=== PATIENT | male | born 1945 | race Caucasian/White ===

== ENCOUNTER 2022-03-09 08:37 | Inpatient (IN) | payer MEDICARE ==
[2022-03-09] MEDS ORDERED: cefTRIAXone\\ROCEPHIN 1 GM VIAL ONE (09:21)
[2022-03-09] MEDS ORDERED: Pantoprazole 40 MG VIAL ONE (09:22)
[2022-03-09 09:37] LABS: #Monocytes 0.2 10x3/uL (0.0-1.1); #Neutrophils 1.4 10x3/uL (1.5-8.4); %Basophils 0.3 % (0.0-2.0); %Eosinophils 0.7 % (0.0-6.0); %Lymphocytes 42.5 % (18.0-47.0); %Neutrophils 48.2 % (40.0-75.0); Hemoglobin 11.2 g/dL (13.5-17.5); Mean Corpuscular HGB CONC 31.8 g/dL (32.0-36.0); Mean Corpuscular Volume 94.4 fl (81.2-95.1); Mean Platelet Volume 9.3 fl (7.4-10.4); Platelet Count 162 10x3/uL (150-450); RBC Distribution Width 14.6 % (11.5-14.5); Red Blood Cell (RBC) Count 3.73 10x6/uL (4.32-5.72); White Blood Cell (WBC) Count 2.9 10x3/uL (3.5-10.5)
[2022-03-09 09:57] LABS: INR-International Normal Ratio 1.1; PTT 31.6 sec (22.0-33.0); Prothrombin Time 11.6 sec (9.5-12.1)
[2022-03-09 09:58] LABS: ALT (SGPT) 19 U/L (8-55); AST (SGOT) 38 U/L (5-34); Albumin 3.2 g/dL (3.4-4.8); Alkaline Phosphatase 51 U/L (40-110); Anion Gap 12 mmol/L (10-20); BUN (Urea Nitrogen) 58 mg/dL (8.4-25.7); Bilirubin, Total 0.4 mg/dL (0.2-1.2); Calc. Creatinine Clearance 0 mL/min (70-130); Calcium 8.2 mg/dL (7.8-10.44); Carbon Dioxide 21 mmol/L (23-31); Chloride 112 mmol/L (98-107); Estimated GFR 78; Globulin 2.6 g/dL (2.4-3.5); Glucose 91 mg/dL (83-110); Potassium 4.2 mmol/L (3.5-5.1); Protein, Total 5.8 g/dL (5.8-8.1); Sodium 141 mmol/L (136-145)
[2022-03-09 09:59] LABS: Troponin I 0.048 ng/mL (< 0.028)
[2022-03-09] MEDS ORDERED: Ondansetron PF 4 MG/2 ML Vial IVP PRN (10:43)
[2022-03-09] MEDS: Sodium Chloride 0.9% 1,000 ML IV SCH (11:34)
[2022-03-09] MEDS ORDERED: Octreotide Acetate 50 MCG in Sodium Chloride 0.9% 50 ML IVPB SCH (13:00)
[2022-03-09] MEDS ORDERED: Pantoprazole 80 MG, Admixture Fee 1 EACH in Sodium Chloride 0.9% 100 ML IVPB SCH (13:00)
[2022-03-09 13:09] VITALS: BMI 28.9
[2022-03-09 13:11] LABS: Hemoglobin 10.8 g/dL (13.5-17.5); Platelet Count 153 10x3/uL (150-450)
[2022-03-09 13:37] LABS: Troponin I 0.047 ng/mL (< 0.028)
[2022-03-09 16:32] LABS: Hemoglobin 10.4 g/dL (13.5-17.5)
[2022-03-09 18:29] LABS: Bilirubin Neg (Negative); Blood, Urine Negative (Negative); Clarity Clear (Clear); Glucose, Urine (Dipstick) Normal (Negative); Ketone, Urine 5 mg/dL (Negative); Leukocyte Negative (Negative); Nitrite Negative (Negative); Protein, Urine (Dipstick) 15 mg/dl (Neg-Trace); Specific Gravity, Urine 1.015 3 (1.005-1.030); Urobilinogen Normal mg/dL (Less than 2)
[2022-03-09 18:34] LABS: Urine Culture Reflex No No
[2022-03-09 18:37] LABS: Bacteria/HPF None Seen HPF (None Seen); RBC/HPF 0-3 HPF (0-3); Squamous Epithelial 0-3 HPF (0-3); WBC/HPF 0-3 HPF (0-3)
[2022-03-09] MEDS ORDERED: Pantoprazole 40 MG VIAL IVP SCH (21:00)
[2022-03-09] MEDS ORDERED: Carvedilol 6.25 MG TAB PO SCH (21:00)
[2022-03-09] MEDS: Latanoprost 0.005% Ophth Soln 2.5 ml Bottle EA EYE SCH (21:16)
[2022-03-09] MEDS: Rosuvastatin 10 MG TAB PO SCH (21:16)
[2022-03-09] MEDS: Sacubitril 49 MG/Valsartan 51 MG TABLET PO SCH (21:16)
[2022-03-09 22:19] LABS: Hemoglobin 10.1 g/dL (13.5-17.5)
[2022-03-09] MEDS ORDERED: Metoprolol Tartrate 25 MG TAB PO SCH (23:15)
[2022-03-10] MEDS ORDERED: Metoprolol Tartrate 5 MG/5 ML VIAL IVP SCH (02:30)
[2022-03-10 02:53] LABS: Hemoglobin 9.9 g/dL (13.5-17.5); Mean Corpuscular HGB CONC 32.8 g/dL (32.0-36.0); Mean Corpuscular Hemoglobin 30.6 pg (27.0-33.0); Mean Corpuscular Volume 93.2 fl (81.2-95.1); Mean Platelet Volume 8.8 fl (7.4-10.4); Platelet Count 142 10x3/uL (150-450); RBC Distribution Width 14.6 % (11.5-14.5); Red Blood Cell (RBC) Count 3.24 10x6/uL (4.32-5.72); White Blood Cell (WBC) Count 2.8 10x3/uL (3.5-10.5)
[2022-03-10 02:54] LABS: MDiff Complete? YES
[2022-03-10 03:33] LABS: Anion Gap 11 mmol/L (10-20); BUN (Urea Nitrogen) 45 mg/dL (8.4-25.7); Calc. Creatinine Clearance 83 mL/min (70-130); Calcium 8.1 mg/dL (7.8-10.44); Carbon Dioxide 25 mmol/L (23-31); Chloride 110 mmol/L (98-107); Estimated GFR 77; Glucose 101 mg/dL (83-110); Sodium 142 mmol/L (136-145)
[2022-03-10 03:36] LABS: Band 11 % (5-11); Eosinophils 4 % (0-10); Lymphocytes 43 % (21-51); Monocytes 11 % (0-10); Neutrophil 29 % (42-75); Reactive Lymphocytes 2 % (0-10)
[2022-03-10 03:37] LABS: Platelet Morphology Comment Appears Adequate
[2022-03-10 03:38] LABS: RBC Morphology Normal
[2022-03-10] MEDS: Sodium Chloride 0.9% 1,000 ML IV SCH (06:03)
[2022-03-10] MEDS: Levothyroxine Sodium 75 MCG TAB PO SCH (06:03)
[2022-03-10] MEDS: Carvedilol 12.5 MG TAB PO SCH ×2 (09:14→17:06)
[2022-03-10] MEDS: Sacubitril 49 MG/Valsartan 51 MG TABLET PO SCH (09:14)
[2022-03-10] MEDS: Cholecalciferol 1,000 UNITS (25 MCG) TAB PO SCH (09:14)
[2022-03-10] MEDS: cefTRIAXone\\ROCEPHIN 1 GM in Sodium Chloride 0.9% 100 ML IVPB SCH (09:14)
[2022-03-10] MEDS: Fish Oil 1,000 MG CAP PO SCH (09:14)
[2022-03-10] MEDS ORDERED: PROPOFOL 40 ML ONE (14:30)
[2022-03-10] MEDS: Pantoprazole 40 MG VIAL IVP SCH (20:00)
[2022-03-10] MEDS: Rosuvastatin 10 MG TAB PO SCH (20:00)
[2022-03-10] MEDS: Latanoprost 0.005% Ophth Soln 2.5 ml Bottle EA EYE SCH (20:00)
[2022-03-11] MEDS: Levothyroxine Sodium 75 MCG TAB PO SCH (05:18)
[2022-03-11 05:22] LABS: Hemoglobin 9.3 g/dL (13.5-17.5); Mean Corpuscular HGB CONC 32.3 g/dL (32.0-36.0); Mean Corpuscular Hemoglobin 30.1 pg (27.0-33.0); Mean Corpuscular Volume 93.2 fl (81.2-95.1); Mean Platelet Volume 9.3 fl (7.4-10.4); Platelet Count 148 10x3/uL (150-450); RBC Distribution Width 14.5 % (11.5-14.5); Red Blood Cell (RBC) Count 3.09 10x6/uL (4.32-5.72); White Blood Cell (WBC) Count 2.5 10x3/uL (3.5-10.5)
[2022-03-11 05:57] LABS: Anion Gap 11 mmol/L (10-20); BUN (Urea Nitrogen) 29 mg/dL (8.4-25.7); Calc. Creatinine Clearance 94 mL/min (70-130); Calcium 8.1 mg/dL (7.8-10.44); Carbon Dioxide 24 mmol/L (23-31); Chloride 110 mmol/L (98-107); Estimated GFR 88; Glucose 88 mg/dL (83-110); Potassium 4.1 mmol/L (3.5-5.1); Sodium 141 mmol/L (136-145)
[2022-03-11 06:33] LABS: MDiff Complete? YES
[2022-03-11 06:40] LABS: Band 11 % (5-11); Eosinophils 2 % (0-10); Lymphocytes 44 % (21-51); Monocytes 8 % (0-10); Neutrophil 35 % (42-75); Nucleated RBC 1 % (0)
[2022-03-11 06:41] LABS: Platelet Morphology Comment Appears Adequate
[2022-03-11 06:42] LABS: RBC Morphology Normal
[2022-03-11] MEDS: cefTRIAXone\\ROCEPHIN 1 GM in Sodium Chloride 0.9% 100 ML IVPB SCH (09:39)
[2022-03-11] MEDS: Fish Oil 1,000 MG CAP PO SCH (09:39)
[2022-03-11] MEDS: Carvedilol 12.5 MG TAB PO SCH ×2 (09:39→16:13)
[2022-03-11] MEDS: Pantoprazole 40 MG VIAL IVP SCH (09:40)
[2022-03-11] MEDS: Cholecalciferol 1,000 UNITS (25 MCG) TAB PO SCH (09:40)
[2022-03-11 16:23] VITALS: BP 109/67; TEMP 98
== END 2022-03-11 16:27 | disposition home or self-care (01) | DRG 377 ==
LOC: CSHERS 08:37 → CSHTELE 10:50
PROVIDERS: ADMIT Hospitalist; ATTEND Internal Medicine
PROC: 0DB68ZX Excision of Stomach, Via Natural or Artificial Opening Endoscopic, Diagnostic (ICD-10-PCS; principal; 2022-03-10)
DX: K25.4 Chronic or unspecified gastric ulcer with hemorrhage (principal); I21.A1 Myocardial infarction type 2; U07.1 COVID-19; I47.1 Supraventricular tachycardia; R71.0 Precipitous drop in hematocrit; I48.92 Unspecified atrial flutter; I42.8 Other cardiomyopathies; N17.9 Acute kidney failure, unspecified; I48.91 Unspecified atrial fibrillation; F03.90 Unspecified dementia, unspecified severity, without behavioral disturbance, psychotic disturbance, mood disturbance, and anxiety; I50.9 Heart failure, unspecified; E03.9 Hypothyroidism, unspecified; E78.00 Pure hypercholesterolemia, unspecified; K26.4 Chronic or unspecified duodenal ulcer with hemorrhage; Z79.01 Long term (current) use of anticoagulants; Z95.810 Presence of automatic (implantable) cardiac defibrillator; Z79.899 Other long term (current) drug therapy; Z79.890 Hormone replacement therapy; Z87.891 Personal history of nicotine dependence
CPT/HCPCS: 36415; 80048; 80053; 81001; 83735; 84484; 85025; 85610; 85730; 86850; 86900; 86901; 88305; 88342; 93005; 94760; 96365; 96375; C9113; J0696; J2354; J2704; J3490; J7050; U0003; U0005